=== PATIENT | male | born 1950 | race Hispanic/Latino ===

== ENCOUNTER 2021-11-08 19:26 | Emergency (ER) | payer MEDICARE ==
[~2021-11-08] VITALS: Ht 160 cm; Wt 68.0 kg
[2021-11-08] MEDS ORDERED: PIPERACILLIN/TAZOBACTAM 3.375 GM VIAL ONE (21:31)
[2021-11-08] MEDS ORDERED: IBUPROFEN 600 MG TAB PO STA (21:33)
[2021-11-08] MEDS ORDERED: CEFDINIR300 MG PO (22:36)
== END 2021-11-08 23:23 | disposition home or self-care (01) ==
LOC: FSED 20:01
DX: R50.9 Fever, unspecified (principal); J21.9 Acute bronchiolitis, unspecified; R53.1 Weakness; E11.65 Type 2 diabetes mellitus with hyperglycemia; I10 Essential (primary) hypertension; Z20.822 Contact with and (suspected) exposure to COVID-19
CPT/HCPCS: 71045; 80053; 81003; 82553; 84484; 85025; 87040; 93005; 99284; J2543; U0002

== ENCOUNTER 2021-11-10 16:24 | Inpatient (IN) | payer MEDICARE ==
[~2021-11-10] VITALS: Ht 162.6 cm; Wt 69.4 kg
[~2021-11-10 16:24] MED LIST: CEFDINIR300 MG PO
[2021-11-10] MEDS ORDERED: SODIUM CHLORIDE 0.9% 1000ML 1,000 ML ONE ×2 (16:53→18:01)
[2021-11-10] MEDS ORDERED: SODIUM CHLORIDE 0.9% 1000ML 1,000 ML IV ONE (17:00)
[2021-11-10] MEDS ORDERED: SODIUM CHLORIDE FLUSH 10 ML SYR INJ PRN (17:15)
[2021-11-10] MEDS ORDERED: ACETAMINOPHEN 325 MG TAB ONE (17:21)
[2021-11-10] MEDS ORDERED: SODIUM CHLORIDE 0.9% 250ML 250 ML IV ONE (17:30)
[2021-11-10 17:34] LABS: HEMATOCRIT 11.9 % (38.2-49.6); HEMOGLOBIN 3.2 g/dL (14.0-18.0)
[2021-11-10] MEDS ORDERED: ACETAMINOPHEN 325 MG TAB PO ONE (17:45)
[2021-11-10 17:46] LABS: CREATINE KINASE MB 1.5 ng/mL (0-5.0)
[2021-11-10] MEDS ORDERED: CEFEPIME 2 GM in SODIUM CHLORIDE 0.9% 100 ML IV SCH (18:00)
[2021-11-10] MEDS ORDERED: SODIUM CHLORIDE 0.9% 1000ML 1,000 ML IV SCH (18:00)
[2021-11-10] MEDS ORDERED: LEVOFLOXACIN 750MG/D5W 150ML 150 ML IV SCH ×2 (18:00→21:00)
[2021-11-10] MEDS ORDERED: SODIUM CHLORIDE 0.9% 250ML 250 ML ONE (18:01)
[2021-11-10] MEDS ORDERED: CEFEPIME HCL 1 GM VIAL ONE (18:01)
[2021-11-10] MEDS: METRONIDAZOLE 500MG/NS 100ML 100 ML IV SCH (18:45)
[2021-11-10 19:00] VITALS: BP 125/53
[2021-11-10] MEDS ORDERED: ONDANSETRON HCL INJ 2MG/ML 2ML 2 MG/ML VIAL IV PRN (19:30)
[2021-11-10] MEDS ORDERED: ACETAMINOPHEN 325 MG TAB PO PRN (19:30)
[2021-11-10 19:50] VITALS: BP 125/53
[2021-11-10 20:00] VITALS: BP 110/45
[2021-11-10 21:00] VITALS: BP 113/49
[2021-11-10] MEDS ORDERED: SODIUM CHLORIDE 0.9% 250ML 750 ML ONE (21:57)
[2021-11-10 22:00] VITALS: BP 119/53
[2021-11-10] MEDS ORDERED: CLONIDINE HCL 0.1 MG TAB PO PRN (22:30)
[2021-11-10 23:00] VITALS: BP 124/55
[2021-11-10 23:25] LABS: % IRON SATURATION 2 % (15-50); IRON 7 ug/dL (65-175); TOTAL IRON BINDING CAPACITY 377 ug/dL (261-478); TRANSFERRIN 269 mg/dL (174-364)
[2021-11-11] VITALS (23 sets, daily range): BP systolic 106–157; BP diastolic 52–79
[2021-11-11] MEDS ORDERED: CYANOCOBALAMIN INJ 1,000 MCG/ML VIAL IM ONE (02:45)
[2021-11-11] MEDS: METRONIDAZOLE 500MG/NS 100ML 100 ML IV SCH ×3 (04:24→20:24)
[2021-11-11 07:17] LABS: BASOPHILS % 0.3 % (0.0-1.0); EOSINOPHILS # (AUTO) 0.1 (0.0-0.4); EOSINOPHILS % 0.6 % (0.0-6.0); HEMATOCRIT 28.9 % (38.2-49.6); HEMOGLOBIN 8.8 g/dL (14.0-18.0); LYMPHOCYTES # (AUTO) 0.8 (1.0-3.2); LYMPHOCYTES % 4.7 % (18.0-39.1); MEAN CORPUSCULAR HEMOGLOBIN 22.9 pg (28-32); MEAN CORPUSCULAR HGB CONC 30.4 g/dL (31-35); MEAN CORPUSCULAR VOLUME 75.1 fL (81-99); MONOCYTES # (AUTO) 1.2 (0.2-0.8); MONOCYTES % 7.2 % (4.4-11.3); NEUTROPHILS # (AUTO) 13.8 (2.1-6.9); NEUTROPHILS % 86.1 % (38.7-80.0); PLATELET COUNT 197 x10e3/uL (140-360); RED BLOOD COUNT 3.85 x10e6/uL (4.3-5.7)
[2021-11-11] MEDS: INSULIN LISPRO 100 UNIT/1 ML 3ML VIAL SQ SCH ×4 (07:30→21:00)
[2021-11-11 07:48] LABS: ALBUMIN 2.7 g/dL (3.5-5.0); ANION GAP 9.9 mmol/L (8-16); BILIRUBIN,DIRECT 0.7 mg/dL (0.0-0.5); CALCIUM 7.9 mg/dL (8.4-10.2); CHOL/HDL RATIO 2.6 (3.9-4.7); CREATININE, SERUM 1.12 mg/dL (0.72-1.25); POTASSIUM 3.9 mmol/L (3.5-5.1)
[2021-11-11] MEDS: IRON SUCROSE 100 MG in SODIUM CHLORIDE 0.9% 100 ML 100 ML IV SCH (08:39)
[2021-11-11 12:48] LABS: BASOPHILS % 0.2 % (0.0-1.0); EOSINOPHILS # (AUTO) 0.1 (0.0-0.4); EOSINOPHILS % 0.8 % (0.0-6.0); HEMATOCRIT 29.4 % (38.2-49.6); HEMOGLOBIN 9.1 g/dL (14.0-18.0); LYMPHOCYTES # (AUTO) 0.7 (1.0-3.2); LYMPHOCYTES % 4.6 % (18.0-39.1); MEAN CORPUSCULAR HEMOGLOBIN 22.9 pg (28-32); MEAN CORPUSCULAR VOLUME 73.9 fL (81-99); MONOCYTES % 6.3 % (4.4-11.3); NEUTROPHILS % 86.6 % (38.7-80.0); PLATELET COUNT 203 x10e3/uL (140-360); RED BLOOD COUNT 3.98 x10e6/uL (4.3-5.7); RED CELL DISTRIBUTION WIDTH 26.3 % (11.7-14.4)
[2021-11-11 13:11] LABS: INR 0.96; PROTHROMBIN TIME 13.7 seconds (11.9-14.5)
[2021-11-11 13:12] LABS: PARTIAL THROMBOPLASTIN TIME 32.3 seconds (23.8-35.5)
[2021-11-11 13:17] LABS: ALBUMIN 2.7 g/dL (3.5-5.0); ALBUMIN/GLOBULIN RATIO 0.8 (0.8-2.0); ANION GAP 11.8 mmol/L (8-16); CALCIUM 7.9 mg/dL (8.4-10.2); CREATININE, SERUM 1.06 mg/dL (0.72-1.25); POTASSIUM 3.8 mmol/L (3.5-5.1)
[2021-11-11] MEDS ORDERED: IOPAMIDOL 370 MG/ML 100 ML INFUS..BTL INJ ONE (13:32)
[2021-11-12] VITALS (18 sets, daily range): BP systolic 115–160; BP diastolic 53–69
[2021-11-12] MEDS: METRONIDAZOLE 500MG/NS 100ML 100 ML IV SCH ×3 (04:08→20:00)
[2021-11-12 04:58] LABS: BASOPHILS # (AUTO) 0.1 (0.0-0.1); BASOPHILS % 0.4 % (0.0-1.0); EOSINOPHILS # (AUTO) 0.3 (0.0-0.4); EOSINOPHILS % 2.4 % (0.0-6.0); HEMATOCRIT 27.6 % (38.2-49.6); HEMOGLOBIN 8.6 g/dL (14.0-18.0); LYMPHOCYTES # (AUTO) 0.8 (1.0-3.2); MEAN CORPUSCULAR HGB CONC 31.2 g/dL (31-35); MEAN CORPUSCULAR VOLUME 73.8 fL (81-99); MONOCYTES % 8.6 % (4.4-11.3); NEUTROPHILS # (AUTO) 9.6 (2.1-6.9); NEUTROPHILS % 79.5 % (38.7-80.0); PLATELET COUNT 210 x10e3/uL (140-360); RED BLOOD COUNT 3.74 x10e6/uL (4.3-5.7); RED CELL DISTRIBUTION WIDTH 26.8 % (11.7-14.4)
[2021-11-12 05:20] LABS: ANION GAP 11.8 mmol/L (8-16); CALCIUM 7.6 mg/dL (8.4-10.2); CREATININE, SERUM 0.93 mg/dL (0.72-1.25); POTASSIUM 3.8 mmol/L (3.5-5.1)
[2021-11-12] MEDS: INSULIN LISPRO 100 UNIT/1 ML 3ML VIAL SQ SCH ×4 (07:30→20:18)
[2021-11-12] MEDS: CYANOCOBALAMIN INJ 1,000 MCG/ML VIAL IM SCH (09:49)
[2021-11-12] MEDS ORDERED: NORVASC5 MG PO (11:04)
[2021-11-12] MEDS ORDERED: ASPIRIN EC81 MG PO (11:04)
[2021-11-12] MEDS ORDERED: METFORMIN HCL500 MG PO (11:04)
[2021-11-12] MEDS ORDERED: ATORVASTATIN CA40 MG PO (11:04)
[2021-11-12] MEDS ORDERED: GLIMEPIRIDE1 MG PO (11:04)
[2021-11-12] MEDS: IRON SUCROSE 100 MG in SODIUM CHLORIDE 0.9% 100 ML 100 ML IV SCH (12:48)
[2021-11-12] MEDS ORDERED: SODIUM CHLORIDE 0.9% 250ML 250 ML ONE (18:07)
[2021-11-13] VITALS (8 sets, daily range): BP systolic 147–165; BP diastolic 68–85
[2021-11-13] MEDS: METRONIDAZOLE 500MG/NS 100ML 100 ML IV SCH ×3 (03:38→20:00)
[2021-11-13 05:27] LABS: BASOPHILS # (AUTO) 0.1 (0.0-0.1); BASOPHILS % 0.8 % (0.0-1.0); EOSINOPHILS # (AUTO) 0.2 (0.0-0.4); EOSINOPHILS % 3.2 % (0.0-6.0); HEMOGLOBIN 8.8 g/dL (14.0-18.0); LYMPHOCYTES # (AUTO) 1.1 (1.0-3.2); LYMPHOCYTES % 14.3 % (18.0-39.1); MEAN CORPUSCULAR HEMOGLOBIN 22.3 pg (28-32); MEAN CORPUSCULAR HGB CONC 29.3 g/dL (31-35); MEAN CORPUSCULAR VOLUME 76.1 fL (81-99); MONOCYTES # (AUTO) 0.8 (0.2-0.8); MONOCYTES % 10.6 % (4.4-11.3); PLATELET COUNT 220 x10e3/uL (140-360); RED BLOOD COUNT 3.94 x10e6/uL (4.3-5.7); RED CELL DISTRIBUTION WIDTH 27.9 % (11.7-14.4)
[2021-11-13] MEDS: INSULIN LISPRO 100 UNIT/1 ML 3ML VIAL SQ SCH ×4 (07:30→21:00)
[2021-11-13] MEDS: IRON SUCROSE 100 MG in SODIUM CHLORIDE 0.9% 100 ML 100 ML IV SCH (08:24)
[2021-11-13] MEDS: CYANOCOBALAMIN INJ 1,000 MCG/ML VIAL IM SCH (08:24)
[2021-11-13] MEDS ORDERED: ATORVASTATIN 40 MG TAB PO SCH (21:00)
[2021-11-14] VITALS: BP 150/66
[2021-11-14] MEDS ORDERED: SODIUM CHLORIDE 0.9% 250ML 0 ML ONE (03:13)
[2021-11-14 04:00] VITALS: BP 144/66
[2021-11-14] MEDS: METRONIDAZOLE 500MG/NS 100ML 100 ML IV SCH (04:00)
[2021-11-14 06:45] LABS: BASOPHILS # (AUTO) 0.1 (0.0-0.1); BASOPHILS % 0.4 % (0.0-1.0); EOSINOPHILS # (AUTO) 0.1 (0.0-0.4); EOSINOPHILS % 0.9 % (0.0-6.0); HEMATOCRIT 29.2 % (38.2-49.6); HEMOGLOBIN 8.9 g/dL (14.0-18.0); LYMPHOCYTES # (AUTO) 0.9 (1.0-3.2); LYMPHOCYTES % 6.8 % (18.0-39.1); MEAN CORPUSCULAR HGB CONC 30.5 g/dL (31-35); MEAN CORPUSCULAR VOLUME 75.5 fL (81-99); MONOCYTES # (AUTO) 0.9 (0.2-0.8); MONOCYTES % 6.8 % (4.4-11.3); NEUTROPHILS # (AUTO) 11.5 (2.1-6.9); NEUTROPHILS % 83.7 % (38.7-80.0); PLATELET COUNT 234 x10e3/uL (140-360); RED BLOOD COUNT 3.87 x10e6/uL (4.3-5.7)
[2021-11-14] MEDS: INSULIN LISPRO 100 UNIT/1 ML 3ML VIAL SQ SCH (07:30)
[2021-11-14 08:02] VITALS: BP 141/67
[2021-11-14 08:14] VITALS: BP 141/67
[2021-11-14] MEDS ORDERED: SODIUM CHLORIDE 0.9% 250ML 250 ML ONE (08:52)
[2021-11-14] MEDS ORDERED: AMLODIPINE BESYLATE 5 MG TAB PO SCH (09:00)
== END 2021-11-14 09:13 | disposition short-term general hospital (02) | DRG 375 ==
LOC: FSED 16:35 → ERHOLD 17:08 → ICU 18:37 → MED/SURG3 11-12 17:50
PROVIDERS: ADMIT Internal Medicine; ATTEND Internal Medicine
PROC: 30233N1 Transfusion of Nonautologous Red Blood Cells into Peripheral Vein, Percutaneous Approach (ICD-10-PCS; principal; 2021-11-10)
DX: C17.9 Malignant neoplasm of small intestine, unspecified (principal); D62 Acute posthemorrhagic anemia; K92.2 Gastrointestinal hemorrhage, unspecified; I10 Essential (primary) hypertension; E11.65 Type 2 diabetes mellitus with hyperglycemia; R55 Syncope and collapse; E78.00 Pure hypercholesterolemia, unspecified; Z85.46 Personal history of malignant neoplasm of prostate; E78.5 Hyperlipidemia, unspecified; Z79.82 Long term (current) use of aspirin; Z79.84 Long term (current) use of oral hypoglycemic drugs
CPT/HCPCS: 36415; 71045; 74177; 80048; 80053; 80061; 80076; 81003; 82270; 82550; 82553; 82607; 82746; 82948; 83518; 83540; 83605; 83690; 83735; 84466; 84484; 85014; 85018; 85025; 85045; 85610; 85730; 86850; 86900; 86920; 87400; 93306; 94799; 96374; 96376; 99284; J0692; J1756; J3420; J7030; J7050; P9016; Q9967; U0002

== ENCOUNTER 2024-04-17 08:45 | Observation (INO) | payer MEDICARE ==
[~2024-04-17] VITALS: Ht 167.6 cm; Wt 68.0 kg
[2024-04-17] VITALS (7 sets, daily range): BP systolic 136–157; BP diastolic 64–69; PULSE 77–94; RESP 17–18; TEMP 98.1–98.5; O2SAT 98–100
[~2024-04-17 08:45] MED LIST changes: +ASPIRIN EC81 MG PO; +ATORVASTATIN CA40 MG PO; +GLIMEPIRIDE1 MG PO; +METFORMIN HCL500 MG PO; +NORVASC5 MG PO
[2024-04-17] MEDS ORDERED: IOPAMIDOL 370 MG/ML 100 ML INFUS..BTL INJ ONE (09:45)
[2024-04-17] MEDS ORDERED: ONDANSETRON HCL INJ 2MG/ML 2ML 2 MG/ML VIAL ONE (10:33)
[2024-04-17] MEDS: ONDANSETRON HCL INJ 2MG/ML 2ML 2 MG/ML VIAL IV STA (10:44)
[2024-04-17] MEDS: SODIUM CHLORIDE 0.9% 1000ML 1,000 ML IV ONE (12:16)
[2024-04-17] MEDS: ASPIRIN 325 MG TAB PO ONE (12:37)
[2024-04-17] MEDS: CLOPIDOGREL BISULFATE 75 MG TAB PO ONE (12:37)
[2024-04-17] MEDS ORDERED: SODIUM CHLORIDE FLUSH 10 ML SYR INJ PRN (13:15)
[2024-04-17] MEDS ORDERED: ONDANSETRON HCL INJ 2MG/ML 2ML 2 MG/ML VIAL IV PRN (13:15)
[2024-04-17] MEDS ORDERED: ACETAMINOPHEN 325 MG TAB PO PRN (15:00)
[2024-04-17] MEDS ORDERED: DEXTROSE 50% SYRINGE 50 ML IV PRN (15:00)
[2024-04-17] MEDS: INSULIN LISPRO 100 UNIT/1 ML 3ML VIAL SQ SCH (16:30)
[2024-04-17 16:46] LABS: CLARITY,URINE CLEAR (CLEAR); COLOR,URINE YELLOW (YELLOW); LEUKOCYTE ESTERASE ,URINE NEGATIVE (NEGATIVE); NITRITE,URINE NEGATIVE (NEGATIVE); PH,URINE 7 (5 - 7); PROTEIN,URINE DIPSTICK 1+ (NEGATIVE)
[2024-04-17 16:47] LABS: BILIRUBIN,URINE NEGATIVE (NEGATIVE); GLUCOSE, URINE 1+ (NEGATIVE); KETONES,URINE NEGATIVE (NEGATIVE); URINE UROBILINOGEN 0.2 mg/dL (0.2 - 1)
[2024-04-17 16:54] LABS: BACTERIA,URINE RARE /HPF; EPITHELIAL CELLS,URINE RARE /LPF; RBC,URINE 0-5 /HPF (0-5); WBC,URINE (MAN) 0-5 /HPF (0-5)
[2024-04-17] MEDS: GLIMEPIRIDE 2 MG TAB PO SCH (16:54)
[2024-04-17] MEDS ORDERED: NON-FORMULARY MEDICATION (Glimepiride 1 MG) PO SCH (17:00)
[2024-04-17] MEDS: ATORVASTATIN 40 MG TAB PO SCH (21:35)
[2024-04-17] MEDS ORDERED: GLEEVEC400 MG PO (21:40)
[2024-04-18] VITALS: BP 136/74; PULSE 67; RESP 17; TEMP 98.2; O2SAT 100
[2024-04-18 04:00] VITALS: BP 129/63; PULSE 67; RESP 17; TEMP 98.3; O2SAT 100
[2024-04-18 06:33] LABS: BASOPHILS % 0.6 % (0.0-1.0); EOSINOPHILS # (AUTO) 0.4 (0.0-0.4); EOSINOPHILS % 8.1 % (0.0-6.0); HEMATOCRIT 29.4 % (38.2-49.6); HEMOGLOBIN 9.7 g/dL (14.0-18.0); LYMPHOCYTES % 18.8 % (18.0-39.1); MEAN CORPUSCULAR HEMOGLOBIN 33.4 pg (28-32); MEAN CORPUSCULAR VOLUME 101.4 fL (81-99); MONOCYTES # (AUTO) 0.4 (0.2-0.8); MONOCYTES % 7.2 % (4.4-11.3); NEUTROPHILS # (AUTO) 3.4 (2.1-6.9); NEUTROPHILS % 65.1 % (38.7-80.0); PLATELET COUNT 166 x10e3/uL (140-360); WHITE BLOOD COUNT 5.17 x10e3/uL (4.8-10.8)
[2024-04-18 06:52] LABS: ANION GAP 10.9 mmol/L (8-16); CALCIUM 8.4 mg/dL (8.4-10.2); CREATININE, SERUM 1.35 mg/dL (0.72-1.25); POTASSIUM 3.9 mmol/L (3.5-5.1)
[2024-04-18 09:10] VITALS: BP 129/63; PULSE 67; RESP 17; TEMP 98.3; O2SAT 100
[2024-04-18 09:14] VITALS: BP 139/64; RESP 18; TEMP 98.2; O2SAT 97
[2024-04-18] MEDS: AMLODIPINE BESYLATE 5 MG TAB PO SCH (10:08)
[2024-04-18] MEDS: ASPIRIN 81 MG ENTERIC COATED PO SCH (10:08)
[2024-04-18 11:58] VITALS: BP 140/71; PULSE 65; RESP 14; TEMP 98.3; O2SAT 100
[2024-04-18] MEDS ORDERED: ONDANSETRON HCL 4 MG ORAL DISINTEGRATING TAB PO PRN (14:00)
== END 2024-04-18 16:17 | disposition home or self-care (01) ==
LOC: FSED 08:49 → ERHOLD 13:05 → MED/SURG3 14:30
PROVIDERS: ADMIT Internal Medicine; ATTEND Internal Medicine
DX: N17.9 Acute kidney failure, unspecified (principal); R26.81 Unsteadiness on feet; C18.9 Malignant neoplasm of colon, unspecified; I10 Essential (primary) hypertension; E78.00 Pure hypercholesterolemia, unspecified; E11.9 Type 2 diabetes mellitus without complications; Z79.84 Long term (current) use of oral hypoglycemic drugs
CPT/HCPCS: 36415 ×2; 70496; 70498; 70551; 80048 ×2; 81001; 82948 ×2; 85025 ×2; 93005; 99284; G0378 ×2; J2405; J7030; Q9967